=== PATIENT | male | born 1945 | race Caucasian/White ===

== ENCOUNTER 2017-10-31 15:16 | Emergency (ER) | payer OTHER ==
[2017-10-31 15:22] VITALS: BP 141/78
[2017-10-31 16:26] LABS: UA SPECIFIC GRAVITY 1.015 (1.005-1.035); microscopic required? YES; urine erythrocyte 3+ (NEGATIVE)
== END 2017-10-31 18:38 | disposition home or self-care (01) ==
LOC: ED 15:16
DX: R31.9 Hematuria, unspecified (principal)

== ENCOUNTER 2019-07-31 21:57 | Emergency (ER) | payer OTHER ==
[~2019-07-31] VITALS: Ht 177.8 cm; Wt 104.3 kg
[2019-07-31 22:00] VITALS: Ht 177.8 cm; Wt 104.3 kg
[2019-07-31 23:14] VITALS: BP 133/73
== END 2019-07-31 23:14 | disposition home or self-care (01) ==
LOC: ED 21:57
DX: S01.01XA Laceration without foreign body of scalp, initial encounter (principal); I10 Essential (primary) hypertension; Z98.890 Other specified postprocedural states; W22.8XXA Striking against or struck by other objects, initial encounter; Y93.89 Activity, other specified; Y92.89 Other specified places as the place of occurrence of the external cause; Y99.8 Other external cause status
CPT/HCPCS: J2001

== ENCOUNTER 2019-08-06 12:07 | Emergency (ER) | payer OTHER ==
[~2019-08-06] VITALS: Ht 177.8 cm; Wt 105.7 kg
[2019-08-06 12:23] VITALS: BP 123/61; Ht 177.8 cm; Wt 105.7 kg
== END 2019-08-06 13:34 | disposition home or self-care (01) ==
LOC: ED 12:07
DX: S01.01XD Laceration without foreign body of scalp, subsequent encounter (principal); I10 Essential (primary) hypertension; X58.XXXD Exposure to other specified factors, subsequent encounter